=== PATIENT | female | born 1945 | race Caucasian/White ===

== ENCOUNTER 2017-08-28 10:30 | Outpatient (RCR) | payer OTHER, SELFPAY ==
--- NOTE | 2017-08-21 15:11 | PT.OIE ---
Current Diagnoses Pain in left shoulder (08/21/17) Stiffness of left shoulder, not elsewhere classified (08/21/17) Adhesive capsulitis of left shoulder (08/21/17) Sprain of left rotator cuff capsule, subsequent encounter (08/21/17) Unspecified injury of muscle(s) and tendon(s) of the rotator cuff of left shoulder, subsequent encounter (08/21/17) Presence of left artificial shoulder joint (08/21/17) Provider Visit Care Team Role Provider Type Brenna Webb MD Attending Provider Non-Staff Primary Care Provider Specialty: Family Practice Address: [address] [place] [address], [phone] Fax: Email: Physical Therapy Initial Evaluation PT-OP-A Visit Information Start: 08/21/17 14:24 Freq: Status: Active Protocol: Document 08/21/17 13:45 DCW (Rec: 08/21/17 15:07 DCW [id number]) Out-Patient Physical Therapy Visit Information Visit Information Visit Type Initial Evaluation Visit Start Time 13:45 Visit Stop Time 14:25 Total Visit Minutes 40 Visit Number 1 Number of FLOOR TILING PROFESSIONAL Visits 0 Evaluation Information Evaluation Date 08/21/17 PT-OP-B Current Condition Start: 08/21/17 14:24 Freq: Status: Active Protocol: Document 08/21/17 13:45 DCW (Rec: 08/21/17 15:07 DCW [id number]) Current Condition History of Current Condition Onset Date 08/05/17 Current Complaints Left shoulder pain, limited ROM History of Current Condition Pt reports she was folding clothes in her laundry room, and slipped on a dryer sheet. Pt fell backwards, flung her arm up, and hit it on the dryer. 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 X-rays were negative, and she was told that she likely just broke up some scar tissue in her shoulder. Prior Treatments and Tests X-rays - shows calcific loose bodies. Future Testing and Treatments Planned Potential MRI pending therapy Treatment Goals Patient/Caregiver Goals Pt would like to return to [employer] Prior Functional Status Baseline Function- ADL's Independent Baseline Function- Mobility Independent Baseline Function- Other Pt reports her shoulder flexion s/p TSA was approximately 135 degrees prior to her injury. Current Functional Impairments (Reported) Functional Limitations- ADL's Unable to hold dishes when trying to wash them, cannot cut bread, unable to use left arm when doing hair. Functional Limitations- Recreation/ Pt unable to kayak. Hobbies Personal Factors Other Personal Factors That May Effect Prior L TSA Therapy/Recovery PT-OP-C Subjective Start: 08/21/17 14:24 Freq: Status: Active Protocol: Document 08/21/17 13:45 DCW (Rec: 08/21/17 15:07 DCW [id number]) Patient Questionnaires Quick Dash- Upper Extremity Quick Dash UE Score 77.27% Quick Dash UE Impairment 60 to 79% Impaired (Score 60- 79) OP-PT Pain Assessment Pain Assessment Grid Paper Pain Assessment Grid Completed Yes Location Left Shoulder Intensity 7 Scale Used Numeric (1 - 10) PT-OP-E Functional Tests Start: 08/21/17 14:24 Freq: Status: Active Protocol: Document 08/21/17 13:45 DCW (Rec: 08/21/17 15:07 DC [id number]) Functional Tests Apley's Scratch Test Action 1: The subject is instructed to touch the opposite shoulder with his/her hand. This motion checks Glenohumeral adduction, internal rotation , horizontal adduction and scapular protraction Action 2: The subject is instructed to place his/her arm overhead and reach behind the neck to touch his/her upper back. This motion checks Glenohumeral abduction, external rotation and scapular upward rotation and elevation. Action 3: The subject puts his/her hand on the lower back and reaches upward as far as possible. This motion checks glenohumeral adduction, internal rotation and scapular retraction with downward rotation Action 1- Left Anterior surface of opposite shoulder Action 2- Left Suboccipital Action 3- Left Left SI PT-OP-F Manual Assessment Start: 08/21/17 14:24 Freq: Status: Active Protocol: Document 08/21/17 13:45 DCW (Rec: 08/21/17 15:07 DC [id number]) Manual Assessments Soft Tissue Assessment Soft Tissue Mobility Assessment Tenderness to palpation - Supraspinatus, Infraspinatus, Subscapularis 3/5 = Wincing and Withdrawal PT-OP-K Range of Motion Start: 08/21/17 14:24 Freq: Status: Active Protocol: Document 08/21/17 13:45 DCW (Rec: 08/21/17 15:07 [id number] Shoulder Goniometric Range of Motion Shoulder Measured in Degrees Left Passive Testing Position Supine Flexion 110 Abduction 78 External Rotation at 0 degrees Abduction 36 Internal Rotation 40 Left Active Testing Position Sitting Flexion 52 Abduction 56 External Rotation at 0 degrees Abduction 19 Internal Rotation 32 Shoulder ROM Limitations Shoulder ROM Limitations Soft Tissue Tightness Pain PT-OP-L Special Tests Start: 08/21/17 14:24 Freq: Status: Active Protocol: Document 08/21/17 13:45 DCW (Rec: 08/21/17 15:07 [facility] [id number]) Special Tests Shoulder Special Tests Passive ER Rotator Cuff Test Results Positive left Lift-Off Rotator Cuff Test Results Unable to position Empty Can Test Results Unable to position Drop Arm Rotator Cuff Test Results Positive left Belly Press Test Results Positive left PT-OP-M Strength Start: 08/21/17 14:24 Freq: Status: Active Protocol: Document 08/21/17 13:45 DCW (Rec: 08/21/17 15:07 [facility] [id number]) Shoulder Strength Shoulder Manual Muscle Testing Left Flexion 2+ Poor+ Abduction (C5) 2+ Poor+ External Rotation 3- Fair- PT-OP-Q Treatments Start: 08/21/17 14:24 Freq: Status: Active Protocol: Document 08/21/17 13:45 DCW (Rec: 08/21/17 15:07 [facility] [id number]) Therapeutic Exercises Sitting Exercises 1 Sitting Exercise Name T-band ER Comments Isometric hold on right, AROM with left PT-OP-T Assessment and Plan Start: 08/21/17 14:24 Freq: Status: Active Protocol: Document 08/21/17 13:45 DCW (Rec: 08/21/17 15:07 [facility] [id number]) Physical Therapy Assessment Rehab Potential Rehabilitation Potential Good Evaluation Complexity Number of Personal Factors/Comorbidities 1-2 Number of Body Systems Impaired 3 Clinical Presentation at Evaluation Evolving Impairments Impairments Functional Activities Pain Posture ROM Soft Tissue Mobility Strength Tone Goals Five Impairment Tenderness to Palpation Continuous Improvement Facilitator Goal (LTG) Tenderness of Supraspinatus, Infraspinatus, Subscapularis to 1/5 = Complaint of pain Four Impairment ROM Continuous Improvement Facilitator Goal (LTG) Left Flexion 90 AROM/120 PROM Left Abduction 90 AROM/120 PROM Left ER 35 AROM/45 PROM LTG Duration 10/01/17 Three Impairment Apley Scratch Test Shelter Goal (LTG) Action 1: Lateral opposite shoulder Action 2: Reach to C7 Action 3: Reach to L1 LTG Duration 10/01/17 Two Impairment Special Tests Shelter Goal (LTG) Shoulder special testing to negative LTG Duration 10/01/17 One Impairment Activity Participation Short Term Goal (STG) Pt to report no limitations washing her hair STG Duration 09/10/17 Shelter Goal (LTG) Pt to return to kayaking without increased pain LTG Duration 10/01/17 Assessment Summary Assessment Pt is difficult to diagnose at the moment due to the pain and limited ROM impacting her special testing. Pt does have signs and symptoms of tears of all four of her rotator cuff muscles, however her ROM, though limited, is still enough that it would be very unlikely she has torn all four muscles. As her pain decreases and mobility improves, more accurate special tests may help determine the true source of her pain. Hopefully she has simply broken up scar tissue left in place following her shoulder replacement, and will respond well to skilled therapy focusing on pain control, improvement in strength and ROM, and improving left shoulder functional mobility. If no improvement is noted in 2-3 weeks, pt may benefit from an MRI to help to rule in or out tears in her rotator cuff musculature. Physical Therapy Plan Frequency and Duration Frequency of Treatment 2x/Week Duration of Treatment 10 weeks Plan of Care Start Date 08/21/17 Plan of Care End Date 10/30/17 Therapeutic Interventions Therapeutic Interventions Aquatic Therapy Home Exercise Program Joint Mobilizations Manual Therapy Soft Tissue Mobilization Taping Therapeutic Activities Therapeutic Exercises Modalities Cold Pack/Ice Massage Electric Stimulation Hot Packs Ultrasound Next Visit Focus/Plan Next Note Type Treatment Note Next Visit Plan Shoulder PROM, Strengthening exercises, pain control modalities Please Sign and Return: I have reviewed this Plan of Care and certify that the skilled therapy services above are required to meet the patient?s needs. Physician Signature Date Printed Name and Credentials Clinical Instructor Signature Printed Name and Credentials
--- NOTE | 2017-08-26 14:29 | PT.OTN ---
Current Diagnoses Adhesive capsulitis of left shoulder (08/26/17) Physical Therapy Treatment Note PT-OP-A Visit Information Start: 08/21/17 14:24 Freq: Status: Active Protocol: Document 08/26/17 13:45 DCW (Rec: 08/26/17 14:29 DCW [id number]) Out-Patient Physical Therapy Visit Information Visit Information Visit Type Treatment Note Visit Start Time 13:45 Visit Stop Time 14:40 Total Visit Minutes 55 Visit Number 2 Number of LIFELINE REPRESENTATIVES Visits 0 Evaluation Information Evaluation Date 08/21/17 PT-OP-B Current Condition Start: 08/21/17 14:24 Freq: Status: Active Protocol: Document 08/21/17 13:45 DCW (Rec: 08/21/17 15:07 DCW [id number]) Current Condition History of Current Condition Onset Date 08/05/17 Current Complaints Left shoulder pain, limited ROM History of Current Condition Pt reports she was folding clothes in her laundry room, and slipped on a dryer sheet. Pt fell backwards, flung her arm up, and hit it on the dryer. 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 X-rays were negative, and she was told that she likely just broke up some scar tissue in her shoulder. Prior Treatments and Tests X-rays - shows calcific loose bodies. Future Testing and Treatments Planned Potential MRI pending therapy Treatment Goals Patient/Caregiver Goals Pt would like to return to Kayaking. Prior Functional Status Baseline Function- ADL's Independent Baseline Function- Mobility Independent Baseline Function- Other Pt reports her shoulder flexion s/p TSA was approximately 135 degrees prior to her injury. Current Functional Impairments (Reported) Functional Limitations- ADL's Unable to hold dishes when trying to wash them, cannot cut bread, unable to use left arm when doing hair. Functional Limitations- Recreation/ Pt unable to kayak. Hobbies Personal Factors Other Personal Factors That May Effect Prior L TSA Therapy/Recovery PT-OP-C Subjective Start: 08/21/17 14:24 Freq: Status: Active Protocol: Document 08/26/17 13:45 DCW (Rec: 08/26/17 14:29 DCW [id number]) OP-PT Subjective Patient Comments Patient Comments Pt reports that yesterday, she moved her arm quickly in an attempt to catch her sweater as it fell off her arm, and I hurt myself again. PT-OP-Q Treatments Start: 08/21/17 14:24 Freq: Status: Active Protocol: Document 08/26/17 13:45 DCW (Rec: 08/26/17 14:29 DCW [id number]) Cardio Equipment Upper Body Ergometer (UBE) Duration (Minutes) 5 RPM 60 Seat Position 11 Height 2.5 Therapeutic Exercises Sitting Exercises 2 Sitting Exercise Name GH pulleys - Flexion/Abduction Equipment Used Pulleys Standing Exercises 2 Standing Exercise Name Rows Side bilateral Resistance Lv 1 Equipment Used T-band 1 Standing Exercise Name Finger-walk up wall Side left Comments Flexion/Abduction Manual Therapy Treatment Soft Tissue Mobilization 2 Body Location [place] Mobilization Type Strumming Sustained Pressure Trigger Point Release 1 Body Location Parascapular STM Mobilization Type Myofascial Release Strumming Sustained Pressure Intensity/Depth Moderate Joint Mobilizations 1 Joint Scapulothoracic Direction Medial glide Grade III Body Position Supine Manual Techniques 1 Type Manual Shoulder ROM Body Position Supine PT-OP-R Modalities Start: 08/21/17 14:24 Freq: Status: Active Protocol: Document 08/26/17 13:45 DCW (Rec: 08/26/17 14:29 DCW [id number]) Electric Stimulation Electric Stimulation Interferential Current (IFC) Body Location L shoulder Duration (Minutes) 15 Patient Position Hooklying PT-OP-T Assessment and Plan Start: 08/21/17 14:24 Freq: Status: Active Protocol: Document 08/26/17 13:45 DCW (Rec: 08/26/17 14:29 DCW [id number]) Physical Therapy Assessment Impairments Impairments Functional Activities Pain Posture ROM Soft Tissue Mobility Strength Tone Goals Five Impairment Tenderness to Palpation Detention Goal (LTG) Tenderness of Supraspinatus, Infraspinatus, Subscapularis to 1/5 = Complaint of pain LTG Duration 10/01/17 Four Impairment ROM Detention Goal (LTG) Left Flexion 90 AROM/120 PROM Left Abduction 90 AROM/120 PROM Left ER 35 AROM/45 PROM LTG Duration 10/01/17 Three Impairment Apley Scratch Test Detention Goal (LTG) Action 1: Lateral opposite shoulder Action 2: Reach to C7 Action 3: Reach to L1 LTG Duration 10/01/17 Two Impairment Special Tests Immigration Guard Goal (LTG) Shoulder special testing to negative LTG Duration 10/01/17 One Impairment Activity Participation Short Term Goal (STG) Pt to report no limitations washing her hair STG Duration 09/10/17 Immigration Guard Goal (LTG) Pt to return to kayaking without increased pain LTG Duration 10/01/17 Assessment Summary Assessment Pt ROM still limited, appears to be no change from her initial evaluationlast week. Pt forces herself into pain on most of her TherEx, despite multiple reminders to pain- free motion. Physical Therapy Plan Frequency and Duration Frequency of Treatment 2x/Week Duration of Treatment 10 weeks Plan of Care Start Date 08/21/17 Plan of Care End Date 10/30/17 Therapeutic Interventions Therapeutic Interventions Aquatic Therapy Home Exercise Program Joint Mobilizations Manual Therapy Soft Tissue Mobilization Taping Therapeutic Activities Therapeutic Exercises Modalities Cold Pack/Ice Massage Electric Stimulation Hot Packs Ultrasound Next Visit Focus/Plan Next Note Type Treatment Note Next Visit Plan Shoulder PROM, Strengthening exercises, pain control modalities
--- NOTE | 2017-08-28 11:09 | PT.OTN ---
Current Diagnoses Adhesive capsulitis of left shoulder (08/28/17) Physical Therapy Treatment Note PT-OP-A Visit Information Start: 08/21/17 14:24 Freq: Status: Active Protocol: Document 08/28/17 10:35 DCW (Rec: 08/28/17 11:08 DCW [id number]) Out-Patient Physical Therapy Visit Information Visit Information Visit Type Treatment Note Visit Note 5 minutes late Visit Start Time 10:35 Visit Stop Time 11:20 Total Visit Minutes 45 Visit Number 3 Number of ROBOTICS TECHNOLOGIST Visits 0 Evaluation Information Evaluation Date 08/21/17 PT-OP-B Current Condition Start: 08/21/17 14:24 Freq: Status: Active Protocol: Document 08/21/17 13:45 DCW (Rec: 08/21/17 15:07 DCW [id number]) Current Condition History of Current Condition Onset Date 08/05/17 Current Complaints Left shoulder pain, limited ROM History of Current Condition Pt reports she was folding clothes in her laundry room, and slipped on a dryer sheet. Pt fell backwards, flung her arm up, and hit it on the dryer. 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 X-rays were negative, and she was told that she likely just broke up some scar tissue in her shoulder. Prior Treatments and Tests X-rays - shows calcific loose bodies. Future Testing and Treatments Planned Potential MRI pending therapy Treatment Goals Patient/Caregiver Goals Pt would like to return to Kayaking. Prior Functional Status Baseline Function- ADL's Independent Baseline Function- Mobility Independent Baseline Function- Other Pt reports her shoulder flexion s/p TSA was approximately 135 degrees prior to her injury. Current Functional Impairments (Reported) Functional Limitations- ADL's Unable to hold dishes when trying to wash them, cannot cut bread, unable to use left arm when doing hair. Functional Limitations- Recreation/ Pt unable to kayak. Hobbies Personal Factors Other Personal Factors That May Effect Prior L TSA Therapy/Recovery PT-OP-C Subjective Start: 08/21/17 14:24 Freq: Status: Active Protocol: Document 08/28/17 10:35 DCW (Rec: 08/28/17 11:08 DCW [id number]) OP-PT Subjective Patient Comments Patient Comments Pt reports that she is still pretty sore, and feels she would be better off with a longer break in between appointments. PT-OP-Q Treatments Start: 08/21/17 14:24 Freq: Status: Active Protocol: Document 08/28/17 10:35 DCW (Rec: 08/28/17 11:08 DCW [id number]) Cardio Equipment Upper Body Ergometer (UBE) Duration (Minutes) 5 RPM 60 Seat Position 11 Height 3 Therapeutic Exercises Sitting Exercises 2 Sitting Exercise Name GH pulleys - Flexion/Abduction Equipment Used Pulleys Manual Therapy Treatment Soft Tissue Mobilization 1 Body Location Parascapular STM Mobilization Type Myofascial Release Strumming Sustained Pressure Intensity/Depth Moderate Joint Mobilizations 1 Joint Scapulothoracic Direction Medial glide Grade III Body Position Supine PT-OP-R Modalities Start: 08/21/17 14:24 Freq: Status: Active Protocol: Document 08/28/17 10:35 DCW (Rec: 08/28/17 11:09 DCW [id number]) Electric Stimulation Electric Stimulation Interferential Current (IFC) Body Location L shoulder Duration (Minutes) 15 Patient Position Hooklying PT-OP-T Assessment and Plan Start: 08/21/17 14:24 Freq: Status: Active Protocol: Document 08/28/17 10:35 DCW (Rec: 08/28/17 11:08 DCW [id number]) Physical Therapy Assessment Impairments Impairments Functional Activities Pain Posture ROM Soft Tissue Mobility Strength Tone Goals Five Impairment Tenderness to Palpation Residential Goal (LTG) Tenderness of Supraspinatus, Infraspinatus, Subscapularis to 1/5 = Complaint of pain LTG Duration 10/01/17 Four Impairment ROM Residential Goal (LTG) Left Flexion 90 AROM/120 PROM Left Abduction 90 AROM/120 PROM Left ER 35 AROM/45 PROM LTG Duration 10/01/17 Three Impairment Apley Scratch Test Residential Goal (LTG) Action 1: Lateral opposite shoulder Action 2: Reach to C7 Action 3: Reach to L1 LTG Duration 10/01/17 Two Impairment Special Tests Residential Goal (LTG) Shoulder special testing to negative LTG Duration 10/01/17 One Impairment Activity Participation Short Term Goal (STG) Pt to report no limitations washing her hair STG Duration 09/10/17 Residential Goal (LTG) Pt to return to kayaking without increased pain LTG Duration 10/01/17 Assessment Summary Assessment Pt pain is so significant with all TherEx, ROM, or manual therapy, that she is having difficulty participating with any therapeutic intervention. Pt may benefit from having an MRI performed to rule in/out any possible tears. Physical Therapy Plan Frequency and Duration Frequency of Treatment 2x/Week Duration of Treatment 10 weeks Plan of Care Start Date 08/21/17 Plan of Care End Date 10/30/17 Therapeutic Interventions Therapeutic Interventions Aquatic Therapy Home Exercise Program Joint Mobilizations Manual Therapy Soft Tissue Mobilization Taping Therapeutic Activities Therapeutic Exercises Modalities Cold Pack/Ice Massage Electric Stimulation Hot Packs Ultrasound Other Referrals/Consults Referrals/Consults Recommended Discuss with PCP desire for patient to have an MRI Next Visit Focus/Plan Next Note Type Treatment Note Next Visit Plan Shoulder PROM, Strengthening exercises, pain control modalities
--- NOTE | 2017-10-03 10:23 | PT.OPDS ---
Current Diagnoses Adhesive capsulitis of left shoulder (08/28/17) Provider Visit Care Team Role Provider Type Brenna Webb MD Attending Provider Non-Staff Primary Care Provider Specialty: Family Practice Address: [address] [place] [address], [phone] Email: Visit Number Visit Number 3 Discharge Summary PT-OP-B Current Condition Start: 08/21/17 14:24 Freq: Status: Active Protocol: Document 08/21/17 13:45 DCW (Rec: 08/21/17 15:07 DCW [id number]) Current Condition History of Current Condition Onset Date 08/05/17 Current Complaints Left shoulder pain, limited ROM History of Current Condition Pt reports she was folding clothes in her laundry room, and slipped on a dryer sheet. Pt fell backwards, flung her arm up, and hit it on the dryer. 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 X-rays were negative, and she was told that she likely just broke up some scar tissue in her shoulder. Prior Treatments and Tests X-rays - shows calcific loose bodies. Future Testing and Treatments Planned Potential MRI pending therapy Treatment Goals Patient/Caregiver Goals Pt would like to return to Kayaking. Prior Functional Status Baseline Function- ADL's Independent Baseline Function- Mobility Independent Baseline Function- Other Pt reports her shoulder flexion s/p TSA was approximately 135 degrees prior to her injury. Current Functional Impairments (Reported) Functional Limitations- ADL's Unable to hold dishes when trying to wash them, cannot cut bread, unable to use left arm when doing hair. Functional Limitations- Recreation/ Pt unable to kayak. Hobbies Personal Factors Other Personal Factors That May Effect Prior L TSA Therapy/Recovery PT-OP-E Functional Tests Start: 08/21/17 14:24 Freq: Status: Active Protocol: Document 08/21/17 13:45 DCW (Rec: 08/21/17 15:07 DCW [id number]) Functional Tests Sidney's Scratch Test Action 1: The subject is instructed to touch the opposite shoulder with his/her hand. This motion checks Glenohumeral adduction, internal rotation , horizontal adduction and scapular protraction Action 2: The subject is instructed to place his/her arm overhead and reach behind the neck to touch his/her upper back. This motion checks Glenohumeral abduction, external rotation and scapular upward rotation and elevation. Action 3: The subject puts his/her hand on the lower back and reaches upward as far as possible. This motion checks glenohumeral adduction, internal rotation and scapular retraction with downward rotation Action 1- Left Anterior surface of opposite shoulder Action 2- Left Suboccipital Action 3- Left Left SI PT-OP-F Manual Assessment Start: 08/21/17 14:24 Freq: Status: Active Protocol: Document 08/21/17 13:45 DCW (Rec: 08/21/17 15:07 DCW [id number]) Manual Assessments Soft Tissue Assessment Soft Tissue Mobility Assessment Tenderness to palpation - Supraspinatus, Infraspinatus, Subscapularis 3/5 = Wincing and Withdrawal PT-OP-K Range of Motion Start: 08/21/17 14:24 Freq: Status: Active Protocol: Document 08/21/17 13:45 DCW (Rec: 08/21/17 15:07 DCW [id number]) Shoulder Goniometric Range of Motion Shoulder Measured in Degrees Left Passive Testing Position Supine Flexion 110 Abduction 78 External Rotation at 0 degrees Abduction 36 Internal Rotation 40 Left Active Testing Position Sitting Flexion 52 Abduction 56 External Rotation at 0 degrees Abduction 19 Internal Rotation 32 Shoulder ROM Limitations Shoulder ROM Limitations Soft Tissue Tightness Pain PT-OP-L Special Tests Start: 08/21/17 14:24 Freq: Status: Active Protocol: Document 08/21/17 13:45 DCW (Rec: 08/21/17 15:07 DCW [id number]) Special Tests Shoulder Special Tests Passive ER Rotator Cuff Test Results Positive left Lift-Off Rotator Cuff Test Results Unable to position Empty Can Test Results Unable to position Drop Arm Rotator Cuff Test Results Positive left Belly Press Test Results Positive left PT-OP-M Strength Start: 08/21/17 14:24 Freq: Status: Active Protocol: Document 08/21/17 13:45 DCW (Rec: 08/21/17 15:07 DCW [id number]) Shoulder Strength Shoulder Manual Muscle Testing Left Flexion 2+ Poor+ Abduction (C5) 2+ Poor+ External Rotation 3- Fair- PT-OP-T Assessment and Plan Start: 08/21/17 14:24 Freq: Status: Active Protocol: Document 10/03/17 10:21 DCW (Rec: 10/03/17 10:23 DCW [id number]) Physical Therapy Plan Discharge Physical Therapy Discharge Reasons Patient Request Discharge Comments Pt's phoned clinic on 10/02/17 to request discharge. Pt has received an MRI and been referred to an Orthopedic surgeon. Pt will require a new referral in order to return to skilled therapy.
== END 2017-10-31 11:33 ==
LOC: PHYS 10:30
PROVIDERS: PCP Student in an Organized Health Care Education/Training Program; Visit Provider Student in an Organized Health Care Education/Training Program
DX: M75.02 Adhesive capsulitis of left shoulder (principal)
CPT/HCPCS: 97014; 97110; 97140; 97162; G0283